=== PATIENT | female | born 1960 | race Caucasian/White ===

== ENCOUNTER 2022-06-25 17:35 | Inpatient (IN) | payer MEDICAID ==
[~2022-06-25] VITALS: Ht 157.5 cm; Wt 41.8 kg
[2022-06-25 20:59] LABS: BASOPHILS % 0.4 % (0.0-2.0); EOSINOPHILS % 10.4 % (0.0-5.0); HEMATOCRIT. 36.7 % (36.0-48.0); HEMOGLOBIN. 12.1 g/dL (12.0-16.0); LYMPHOCYTES % 30.7 % (20.0-50.0); MEAN CORPUSCULAR HEMOGLOBIN 30.5 pg (28.0-32.0); MEAN CORPUSCULAR VOLUME 92.2 fL (81.0-99.0); MEAN PLATELET VOLUME 7.5 fl (7.4-10.4); MONOCYTES % 12.2 % (2.0-8.0); NEUTROPHILS % 46.3 % (40.0-76.0); PLATELET 404 x1000/uL (130-400); RED BLOOD CELL COUNT 3.98 mill/uL (4.2-5.4); RED CELL DISTRIBUTION WIDTH 14.7 % (11.6-14.6)
[2022-06-25 21:07] LABS: CHLORIDE 105 mEq/L (98-107)
[2022-06-26] MEDS ORDERED: AMLO2.5T45 MT (05:20)
[2022-06-26 05:21] VITALS: BP 157/66
[2022-06-26 05:22] VITALS: BP 157/66
[2022-06-26 08:00] VITALS: BP_SYST 102; BP_SYST 150; BP_DIAS 77; BP_DIAS 81
[2022-06-26] MEDS ORDERED: LORAZEPAM 0.5MG TABLET PO PRN (08:15)
[2022-06-26] MEDS ORDERED: HYDROCODONE/ACETAMINOPHEN 5/325MG TABLET PO PRN (08:15)
[2022-06-26] MEDS ORDERED: ACETAMINOPHEN 325MG TABLET PO PRN ×2 (08:15)
[2022-06-26] MEDS ORDERED: CLONIDINE 0.1MG TABLET PO PRN (08:15)
[2022-06-26] MEDS ORDERED: ONDANSETRON HCL 4MG/2ML INJ IV PRN (08:15)
[2022-06-26] MEDS ORDERED: IPRATROPIUM/ALBUTEROL 0.5-3(2.5)MG/3ML NEB HHN PRN (08:15)
[2022-06-26] MEDS ORDERED: NALOXONE HCL 0.4MG/ML VIAL IV PRN (10:00)
[2022-06-26] MEDS: ENOXAPARIN 40MG/0.4ML SYR SUBCUT SCH (10:52)
[2022-06-26] MEDS: ASPIRIN 81MG EC TABLET PO SCH (10:52)
[2022-06-26 12:00] VITALS: BP 150/77
[2022-06-26] MEDS: DIPHENHYDRAMINE 25MG CAPSULE PO PRN (15:08)
[2022-06-26 16:00] VITALS: BP 119/67
[2022-06-26 20:00] VITALS: BP 120/70
[2022-06-26] MEDS: AMLODIPINE 2.5MG TABLET PO SCH (21:25)
[2022-06-26] MEDS: ATORVASTATIN CALCIUM 20MG TABLET PO SCH (21:25)
[2022-06-27] VITALS: BP 130/64
[2022-06-27] MEDS: DIPHENHYDRAMINE 25MG CAPSULE PO PRN ×3 (03:51→22:46)
[2022-06-27 04:00] VITALS: BP 127/74
[2022-06-27 07:22] LABS: BASOPHILS % 0.2 % (0.0-2.0); EOSINOPHILS % 13.1 % (0.0-5.0); HEMATOCRIT. 37.6 % (36.0-48.0); HEMOGLOBIN. 12.6 g/dL (12.0-16.0); LYMPHOCYTES % 32.8 % (20.0-50.0); MEAN CORPUSCULAR HEMOGLOBIN 30.7 pg (28.0-32.0); MEAN CORPUSCULAR VOLUME 91.7 fL (81.0-99.0); MONOCYTES % 13.8 % (2.0-8.0); NEUTROPHILS % 40.1 % (40.0-76.0); PLATELET 360 x1000/uL (130-400); RED CELL DISTRIBUTION WIDTH 14.9 % (11.6-14.6)
[2022-06-27 07:45] LABS: CHLORIDE 105 mEq/L (98-107)
[2022-06-27 08:00] VITALS: BP 107/84
[2022-06-27] MEDS: ASPIRIN 81MG EC TABLET PO SCH (08:26)
[2022-06-27] MEDS: ENOXAPARIN 40MG/0.4ML SYR SUBCUT SCH (08:26)
[2022-06-27] MEDS: AMLODIPINE 2.5MG TABLET PO SCH ×2 (08:27→21:00)
[2022-06-27 12:00] VITALS: BP 145/61
[2022-06-27 16:00] VITALS: BP_SYST 130; BP_SYST 140; BP_DIAS 20; BP_DIAS 72
[2022-06-27 20:00] VITALS: BP_SYST 108; BP_SYST 114; BP_SYST 44; BP_DIAS 19; BP_DIAS 63; BP_DIAS 72
[2022-06-27] MEDS: ATORVASTATIN CALCIUM 20MG TABLET PO SCH (21:15)
[2022-06-28] VITALS: BP 128/79
[2022-06-28 04:00] VITALS: BP 122/62
[2022-06-28 06:38] LABS: BASOPHILS % 0.2 % (0.0-2.0); EOSINOPHILS % 13.4 % (0.0-5.0); HEMATOCRIT. 36.4 % (36.0-48.0); HEMOGLOBIN. 12.3 g/dL (12.0-16.0); LYMPHOCYTES % 34.9 % (20.0-50.0); MEAN CORPUSCULAR HEMOGLOBIN 30.8 pg (28.0-32.0); MEAN CORPUSCULAR VOLUME 90.9 fL (81.0-99.0); MEAN PLATELET VOLUME 8.1 fl (7.4-10.4); MONOCYTES % 14.1 % (2.0-8.0); NEUTROPHILS % 37.4 % (40.0-76.0); PLATELET 330 x1000/uL (130-400); RED CELL DISTRIBUTION WIDTH 14.7 % (11.6-14.6)
[2022-06-28 08:00] VITALS: BP 96/69
[2022-06-28 08:11] LABS: CHLORIDE 105 mEq/L (98-107)
[2022-06-28 08:26] LABS: HDL CHOLESTEROL 28 mg/dL (40-59); LDL CHOLESTEROL 119 mg/dL (5-100)
[2022-06-28] MEDS: ENOXAPARIN 40MG/0.4ML SYR SUBCUT SCH (08:39)
[2022-06-28] MEDS: ASPIRIN 81MG EC TABLET PO SCH (08:39)
[2022-06-28] MEDS: AMLODIPINE 2.5MG TABLET PO SCH (08:39)
[2022-06-28] MEDS: DIPHENHYDRAMINE 25MG CAPSULE PO PRN (10:58)
[2022-06-28 12:00] VITALS: BP 119/48
[2022-06-28 12:54] VITALS: BP 119/48
== END 2022-06-28 13:15 | disposition home or self-care (01) | DRG 48 ==
LOC: ER 17:35 → 7WST 23:14 → ENRESERV 06-26 01:25 → 7WST 06-27 16:33
PROVIDERS: ADMIT Internal Medicine; ATTEND Internal Medicine
DX: G90.8 Other disorders of autonomic nervous system (principal); D72.10 Eosinophilia, unspecified; E78.5 Hyperlipidemia, unspecified; I10 Essential (primary) hypertension; J44.9 Chronic obstructive pulmonary disease, unspecified; F17.210 Nicotine dependence, cigarettes, uncomplicated; Z88.0 Allergy status to penicillin
CPT/HCPCS: 36415; 71045; 80048; 80053; 80061; 83605; 83880; 84484; 85025; 93005; 93306; 93880; 99285; J1650; Q0163